=== PATIENT | male | born 1990 | race Caucasian/White ===

== ENCOUNTER 2021-06-25 07:42 | Emergency (ER) | payer BC, MEDICAID ==
[~2021-06-25] VITALS: Ht 175.3 cm; Wt 88.2 kg
[~2021-06-25 07:42] MED LIST: NO HOME MEDS
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
[2021-06-25] MEDS ORDERED: acetaminophen 325mg tablet PO ONE (09:45)
[2021-06-25 11:15] VITALS: BP 132/86
--- NOTE | 2021-06-25 11:33 | NUR ---
pt reports he will speak with [employer] later today, does not want to wait for them here.
== END 2021-06-25 11:30 | disposition home or self-care (01) ==
LOC: ER 07:43
DX: S50.11XA Contusion of right forearm, initial encounter (principal); Y04.8XXA Assault by other bodily force, initial encounter; Y93.89 Activity, other specified; Y92.89 Other specified places as the place of occurrence of the external cause; Y99.8 Other external cause status
CPT/HCPCS: 73090; 99283